=== PATIENT | female | born 1975 | race Caucasian/White ===

== ENCOUNTER 2022-11-08 09:28 | Outpatient (REF) | payer OTHER, SELFPAY ==
--- NOTE | ~2022-11-08 | MR_ITS ---
EXAMINATION: MR BRAIN WITH AND WITHOUT CONTRAST CLINICAL INFORMATION: Neurofibromatosis COMPARISON: CT head 11/12/2011. Please note prior brain MRI from 10/25/2011 is not available on PACS at time of dictation. TECHNIQUE: MRI of the brain was obtained using routine sequences before and following administration of intravenous contrast. A total of 5.5 mL of Gadavist was administered intravenously. FINDINGS: Symmetric slightly expansile T2 FLAIR hyperintensity within the bilateral mesial temporal lobes inclusive of the hippocampi. 4 mm nodule along the medial wall of the posterior body of the right lateral ventricle, presumed focal subependymal mckinney matter heterotopia. 3 mm rounded T2 hyperintensity in the right cerebellum. Lentiform T2 hyperintense homogeneously enhancing suboccipital mass partially eroding the outer table of the squamosal occipital calvarium possibly extending into the epidural space in the posterior fossa overlying the cerebellar convexities as seen on prior CT measuring 6.6 x 2.0 cm suggestive of a plexiform neurofibroma. There is infiltration extending into the overlying subcutaneous fat. Additional small resumed cutaneous neurofibromas along the posterior neck. No acute infarct. The GRE sequence is without susceptibility artifact to suggest acute or chronic blood products. No extra-axial fluid collection. The ventricles and sulci are normal in size and configuration without significant volume loss or hydrocephalus. Asymmetry of the lateral ventricles, larger on the right presumably congenital in etiology. Redemonstrated chronic lacunar infarct within the right caudate head. Again seen encephalomalacia/gliosis of the anteroinferior left frontal lobe inclusive of the left gyrus rectus. No abnormal intraparenchymal or leptomeningeal enhancement. No significant mass effect or herniation pattern. The intracranial dural venous sinus and arterial flow voids are preserved. Normal appearance of the midline structures. The orbits are grossly unremarkable. The paranasal sinuses and mastoids are well aerated. MR/MR head/brain wo/w con IMPRESSION: Please note prior brain MRI from 10/25/2011 is not available on PACS at time of dictation and comparison is made to CT from 11/12/2011; an addendum may be issued once prior imaging is made available. 1. 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 Rounded T2 FLAIR hyperintensity in the right cerebellum and expansile T2 signal changes within the mesial temporal lobes, likely on the spectrum of myelin vacuolization. Additional small presumed cutaneous neurofibromas along the posterior neck. 2. 4 mm presumed focal subependymal mckinney matter heterotopia along the right lateral ventricle can be correlated for seizure history. 3. Redemonstrated chronic lacunar infarct within the right caudate head. 4. Again seen encephalomalacia/gliosis of the anteroinferior left frontal lobe inclusive of the left gyrus rectus.
[2022-11-08] MEDS: gadobutroL 7.5 ML VIAL IVPUSH (11:17)
== END 2022-11-08 09:29 | disposition home or self-care (01) ==
LOC: HO.MRI 09:28
PROVIDERS: PCP Internal Medicine; Visit Provider Psychiatry & Neurology Neurology
DX: Q85.00 Neurofibromatosis, unspecified (principal)
CPT/HCPCS: 70553; A9585

== ENCOUNTER 2024-09-13 08:50 | Outpatient (AMB) | payer OTHER, SELFPAY ==
--- NOTE | 2024-09-13 08:54 | A.OFFVIS_ITS ---
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 She was taking amitriptyline 100mg at bedtime, no medication side effects. Headaches were still happening almost every day. Pain was usually bitemporal, sometimes throbbing-type pain. Some sonophobia. No photophobia, nausea, or vomiting. She noticed she was clenching her teeth at night and sometimes during the day. She was taking Tylenol and/or ibuprofen every day, 2-3x/day, saying it was the only thing that helps. Lipoma to left knee was bothersome when walking. [facility] Medical History (Updated 09/13/24 @ 08:59 by Maddi Pope CNP) Migraine Blindness left eye category 5, normal vision right eye Anxiety disorder Neurofibromatosis Review of Systems Const Denies chills, Denies daytime sleepiness, Denies difficulty sleeping, Denies fatigue, Denies fever(s), Denies frequent falls, Reports headache(s), Denies increased appetite, Denies poor appetite, Denies snoring, Denies weakness, Denies weight gain and Denies weight loss Eyes Denies loss of vision ENT Denies vertigo, Denies dizziness and Reports headache(s) Card Denies chest pain at rest, Denies chest pain with activity, Denies syncope, Denies leg edema and Denies palpitations Resp Denies snoring GI Denies constipation, Denies heartburn, Denies diarrhea and Denies nausea Denies urinary frequency, Denies urinary incontinence and Denies urinary urgency Musc Denies abnormal gait, Denies numbness and Denies tingling Skin/Breast Denies dry skin and Denies rash Neuro Denies abnormal gait, Denies vertigo, Denies dizziness, Denies syncope, Denies frequent falls, Reports headache(s), Denies lack of coordination, Denies loss of vision, Denies memory loss, Denies numbness, Denies restless legs, Denies seizure-like activity, Denies tingling, Denies paresthesias, Denies tremor(s) and Denies weakness Psych Denies anxiety, Denies depression, Denies auditory hallucinations, Denies memory loss, Denies visual hallucinations and Denies suicidal ideation Endo Denies fatigue and Denies palpitations Physical Exam Const Other: General Appearance:? normal, in no acute distress. Skin:? multiple cafe au lait spots and fibromas. Heart:? S1, S2 normal, no murmurs. Lungs:? clear anteriorly and posteriorly. Extremities:? no edema. Psych:? alert, oriented, cognitive function intact, cooperative with exam. Neuro Other: Mental Status:?Normal attention, orientation, memory and affect.? Cranial Nerves:?R pupil is round and reactive. L eye is blind. External occular muscles are intact. Visual ayala in R are full. Face is symmetrical. Facial sensations are normal. Tongue is midline. Palate elevates symmetrically. Shoulder shrugging is normal. Hearing to bedside conversation is normal. Motor Examination:?DTRs trace Sensory Exam:?....? Coordination:?No ataxia,?no titubation.? Gait Exam: Within normal limits. Cerebellar Signs:?Dtazsp-tz-hwke is okay. Extrapyramidal System:?No tremor, rigidity with normal facial expressions.? Pronator Drift:?Not present.? Involuntary Movements:?No tremors seen.? Speech:?Normal.? Assessment & Plan Assessment & Plan (1) Neurofibromatosis: Code(s): Q85.00 - Neurofibromatosis, unspecified Category: Medical Plan: She was advised to discuss referral to dermatology for lipoma with PCP. (2) Medication overuse headache: Code(s): G44.40 - Drug-induced headache, not elsewhere classified, not intractable Category: Medical Plan: She was educated on this concept and was advised to stop using all OTC analgesics completely. (3) Migraine: Code(s): G43.909 - Migraine, unspecified, not intractable, without status migrainosus Category: Medical Qualifiers: Intractability: not intractable Migraine type: unspecified Status migrainosus presence: without status migrainosus Qualified Code(s): G43.909 - Migraine, unspecified, not intractable, without status migrainosus Plan: Continue amitriptyline 50mg 2 tablets at bedtime. (4) Blindness left eye category 5, normal vision right eye: Code(s): H54.42A5 - Blindness left eye category 5, normal vision right eye Category: Medical (5) Anxiety disorder: Code(s): F41.9 - Anxiety disorder, unspecified Category: Medical Qualifiers: Anxiety disorder type: unspecified anxiety disorder Qualified Code(s): F41.9 - Anxiety disorder, unspecified (6) S/P craniotomy: Code(s): Z98.890 - Other specified postprocedural states Category: Surgical Plan Meds tried: Topiramate, amitriptyline Orders: Orders Erythrocyte Sedimentation Rate Today G43.909 - Migraine, unspecified, not intractable, without status migrainosus CRP High Sensitivity Today G43.909 - Migraine, unspecified, not intractable, without status migrainosus Coding Level of Care Code Est Pt Level 4 (61670) Diagnoses Neurofibromatosis Q85.00 Medication overuse headache G44.40 Migraine without status migrainosus, not intractable, unspecified migraine type G43.909 Intractability: not intractable Migraine type: unspecified Status migrainosus presence: without status migrainosus Blindness left eye category 5, normal vision right eye H54.42A5 Anxiety disorder, unspecified type F41.9 Anxiety disorder type: unspecified anxiety disorder S/P craniotomy Z98.890
--- OUTSIDE RECORDS SUMMARY | 2024-09-13 08:58 | XMS_ITS | Data Portability ---
Author Organization [facility], [address] Address [address] [place] [address] Assessment No assessment recorded. Plan of Treatment Reminders Order Date Submit Date Provider Last Modified By Organization Details Last Modified Time Details Appointments None recorded. Lab None recorded. Referral None recorded. Procedures None recorded. Surgeries None recorded. Imaging None recorded. Medication Orders Augmentin 875 mg-125 mg tablet 2022 023 [facility]armacy #[id number], [address] [place] [address], [id number], 3 14:14:02 Florastor 250 mg capsule 2022 023 [email or web address] [facility]/Pharmacy #[id number], [address] [place] [address], [id number], 3 14:19:09 chlorhexidi ne gluconate 0.12 % mouthwash 2022 023 [id number] [address] [place] [address], [id number], 3 14:20:21 Patient TargetsNo targets recorded. Patient Instructions Encounter Date Encounter Id Patient Instructions Last Modified By Organization Details Last Modified Time 01/22/2023 [id number] Based on your presentation and exam, you are being treated for a Dental Infection. I am going to prescribe you and antibiotic to cover this infection. Please be sure to complete the full course of this antibiotic to prevent antibiotic resistance. Follow up in 48 hours in person for recheck If symptoms gets worse, for example a fever, sinus pain, or drainage, please go to nearest ER The following are my other recommendations to help with symptoms and is important for this diagnosis: 1. Take Ibuprofen or Tylenol if you do not have any allergies to these medications. If you take a blood thinner you should not take NSAIDS like Ibuprofen. These medication will help with the inflammation in your respiratory tract which should help the cough. 2. Half Peroxide/Half Water Rinses 3. Make an appointment with a dentist - tooth infection will be helped with antibiotics but they usually just continue to reoccur. The only treatment is really a root canal or tooth extraction. 4. Oralgel can help alleviate some of the symptoms - this can be purchased OTC 5. Ice is ok to help with symptoms, but do not apply heat. I would be seen again if you develop any of the following symptoms. 1. Fever > 101.0 2. Stiff neck - where you can't turn your neck 3. Trouble swallowing your saliva - drooling 4. Swelling of a lymph node in your throat that is painful to touch 5. Difficulty breathing 6. Severe Headache 7. Significant facial swelling especially if it move up close to your eye. Thank you for using [employer] today, please feel free to contact our office if you have any questions or concerns. [email or web address] Not available 01/22/2023 14:15:15 Assessment: [place] al abscess with no evidence of sinus, periorbital or orbital involvement. Dental/cheek swelling unable to visualize via telehealth whether amenable to incision and drainage. No evidence of Davin's angina, necrotizing sinus infection, submandibular abscess. Plan: Trial of oral antibiotics, analgesia, and close follow-up within 24-48hrs in person for recheck. ER precautinos for worsening symptoms were given. Pt understood and agreed to plan. [email or web address] Not available 01/25/2023 18:15:37 Reason for Referral None Reported. Problems Name Problem SNOMED Code Status Onset Date Resolution Date Notes Provider Name and Address Organization Details Recorded Time Neurofibromatos is syndrome 85065372 Active [facility] 3 14:03:07 Problem Notes None recorded. Procedures Surgical History Date Name Laterality Status Provider Name and Address Organization Details Recorded Time 3 Virtual Visit completed [facility] D[facility] [place], [address], [place] [employer] [facility] 03/16/2023 15:08:44 Imaging Results None recorded. Procedure Notes None recorded. Medical Equipment None Reported. Allergies No known drug allergies Medications Name Sig Start Date Stop Date Status Note LastModified by Organization Details LastModified Time Augmentin 875 mg-125 mg tablet Take 1 tablet every 12 hours by oral route for 7 days. 2022 active Not Available Not Available Not Avai lable peg-electrol yte solution 420 gram oral solution DRINK 240 ML EVERY 15-20 MINUTES UNTIL FIRST HALF IS GONE, REPEAT 6 HOURS PRIOR TO PROCEDURE active Not Available Not Available No t Available amitriptylin e 25 mg tablet TAKE 1 TABLET BY MOUTH AT BEDTIME active Not Available Not Available No t Available medroxyproge sterone 150 mg/mL intramuscula r suspension ONE INTRAMUSCUL AR EVERY 3 MONTHS active Not Available Not Available No t Available Florastor 250 mg capsule Take 1 capsule twice a day by oral route for 14 days. 2022 active Not Available Not Available Not Avai lable chlorhexidin e gluconate 0.12 % mouthwash Place 15 mL twice a day by mucous membrane route as directed for 5 days. 2022 active Not Available Not Available Not Avai lable Vitals None Recorded Social History Question Answer Notes LastModified by SCL ion Details LastModified Time Tobacco Smoking Status Never Smoker Bellmicky duke, [place] - [facility] 01/22/2023 14:03:32 Have You Had A Flu Shot This Season? No Information not available 01/22/2023 Have You Had Direct Contact, Or Contact During Intimacy, With Monkeypox Rash, Scabs, Or Body Fluids From A Person With Monkeypox? No Information not available 01/22/2023 What Was The Date Of Your Most Recent Tobacco Screening? 01/22/2023 Information not available 01/22/2023 Have You Recently Traveled Abroad? No Information not available 01/22/2023 Sex: Unknown Functional Status Question Answer Note LastModified by Genomindizat ion Details LastModified Time Do you use any illicit or recreational drugs? No Information not available 01/22/2023 Do you or have you ever used any other forms of tobacco or nicotine? Yes Information not available 01/22/2023 What is your level of alcohol consumption? None Information not available 01/22/2023 Do you or have you ever used e-cigarettes or vape? Current user of electronic cigarettes Information not available 01/22/2023 Mental Status None recorded. Family History Nothing Reported. Medical History No medical history recorded. Gynecological History Statement/Question Response Is there any chance of ? No Obstetrics History GPAL:G 0 P 0 0 0 0 Immunizations Vaccine Type Date Status Note Provider Nam e and Address Organization Details Recorded Time Tdap 09/26/2011 completed Bell Kimberly null, [place] - [facility] 01/22/2023 14:04:40 Past Encounters Encounter ID Performer Location Encounter Start Date Encounter Closed Date Diagnosis/Indication Diagnosis SNOMED-CT Code Diagnosis ICD10 Code Diagnosis Note [id number] [facility] [address] [place] [address] 01/22/2023 13:21:24 01/22/2023 14:17:19 Dental abscess [id number] K04.7 Health Concerns Section Related Observation LastModified by Organization Detai ls LastModified Time None Recorded Concern Status LastModified by Organization Details LastModified Time None Recorded Advance Directives Directive None Recorded Payers Insurance Date Sequence Insurance Name Policy Number Policy Rasmussen Covered Member ID Rasmussen Member ID Guarantor Name 03/31/2023 1 [facility] [place] [id number] Yeimi Gonzalez [id number] Yeimi Gonzalez Notes Date Note Type Note Provider Name and Address Organization Details Recorded Time 01/22/2023 text/html Facial ProblemReported bypatient.Notes:47 y.o female pt via telehealth presents with left lower swelling that started this morning. Pt has h/o recent broken tooth of lower molar that occurred 2 days ago. PT has pain but denies any sinus swelling, fever, dysphagia or drainage. Pt unable to get into PCP or Dentist. [facility] [address], [place], [address], [place] - [facility] 03/16/2023 15:08:51 OBGyn Episode No OBEpisode recorded.
== END 2024-09-13 09:28 | disposition home or self-care (01) ==
LOC: HO.HSM 08:50
PROVIDERS: PCP Internal Medicine; Visit Provider Registered Nurse
DX: Q85.00 Neurofibromatosis, unspecified (principal); G44.40 Drug-induced headache, not elsewhere classified, not intractable; G43.909 Migraine, unspecified, not intractable, without status migrainosus; H54.42A5 Blindness left eye category 5, normal vision right eye; F41.9 Anxiety disorder, unspecified; Z98.890 Other specified postprocedural states
CPT/HCPCS: 99214

== ENCOUNTER 2024-09-13 08:50 | Outpatient (REF) | payer OTHER, SELFPAY ==
--- OUTSIDE RECORDS SUMMARY | 2024-09-13 10:11 | XMS_ITS | Clinical Summary ---
Author Organization [facility] Address [address] [place] [id number] Care Team Providers Care Sheet Writer Name Role Phone Tamiko Aguilar MD Primary Care Provider Unavai lable Allergies No known active allergies Medications Medication Sig Dispensed Refills Start Date End Date Status escitalopram (LEXAPRO) 10 MG tablet Take 1 Tab by mouth daily. 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 Dr Rashmi June H/O pheochromocytoma 06/28/2015 Overview: S/p surgical removal Presence of artificial left eye 06/28/19 16 Overview: Due to optic nerve glioma removal as a child History of glioma 06/28/2015 Overview: S/p removal as a child on left Neurofibromatosis 06/28/2015 Resolved Problems Problem Noted Date Resolved Date NO ACTIVE MEDICAL PROBLEMS 06/28/201506/27 Immunizations Name Administration Dates Next Due Tdap 09/26/2011 Family History Medical History Relation Name Comments NF 1 [Other] Daughter 2 Relation Name Status Comments Daughter 1 Daughter 2 Social History Tobacco Use Types Packs/Day Years Used Date Smoking Tobacco: Every Day Cigarettes 4 Comments:2 cigs a day Alcohol Use Standard Drinks/Week Comments No 0 (1 standard drink = 0.6 oz pur e alcohol) Sex Assigned at Date Recorded Not on file Last Filed Vital Signs Vital Sign Reading Time Taken Comments Blood Pressure 100/72 04/18/2016 8:46 AM EST Pulse 68 04/18/2016 8:46 AM EST Temperature 36.9 C (98.5 F) 04/18/2016 8:46 AM EST Respiratory Rate 12 04/18/2016 8:46 AM EST Oxygen Saturation - - Inhaled Oxygen Concentration - - Weight 56.2 kg (124 lb) 04/18/2016 8:46 AM EST Height 160 cm (5' 3 ) 04/18/2016 8:46 AM EST Body Mass Index 21.97 04/18/2016 8:46 AM EST Plan of Treatment Health Maintenance Due Date Last Done Comments Covid-19 Vaccine (#1) 02/12/1976 TOBACCO CHECK/ADVISE 08/12/1993 MAMMOGRAM 2015 BASELINE HEALTH EXAM 40-64 09/05/2017 09/06/2015, CERVICAL CANCER SCREENING 03/23/2018 03/23/2015 CHOLESTEROL SCREENING 09/05/2020 09/06/2015 DTAP/TDAP/TD (2 - Td or Tdap) 09/25/2021 09/26/2011 BMI CHECK/ADVISE 02/25/2024 INFLUENZA (#1) 2024 PNEUMOCOCCAL VACCINE FOR HIG H RISK PATIENTS (#1) 08/12/2040 Care Teams Sheet Writer Relationship Specialty Start Date End Date Tamiko Aguilar MD PCP - General Internal Medicine 03/22/15
== END 2024-09-13 08:51 | disposition home or self-care (01) ==
LOC: HO.LAB 08:50
PROVIDERS: PCP Internal Medicine; Visit Provider Registered Nurse
DX: G44.40 Drug-induced headache, not elsewhere classified, not intractable (principal); Q85.01 Neurofibromatosis, type 1; H54.42A5 Blindness left eye category 5, normal vision right eye; R51.9 Headache, unspecified; F41.9 Anxiety disorder, unspecified; Z98.890 Other specified postprocedural states; Z79.899 Other long term (current) drug therapy
CPT/HCPCS: 36415; 85652; 86141

== ENCOUNTER 2024-10-26 09:14 | Outpatient (AMB) | payer OTHER, SELFPAY ==
--- NOTE | 2024-10-26 09:31 | MHC.OFFVIS ---
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 She was doing okay. Headaches were better after she stopped taking Tylenol and ibuprofen multiple times a day. She fell about a month ago picking up heavy package and landed on knees, did not hit head. Knees were sore and she took some Tylenol and ibuprofen for this. She had some occasional body twitches, like a shiver, at night. Sleep was okay. [facility] Medical History (Updated 09/13/24 @ 08:59 by Maddi Pope CNP) Migraine Blindness left eye category 5, normal vision right eye Anxiety disorder Neurofibromatosis Review of Systems Const Denies chills, Denies daytime sleepiness, Denies difficulty sleeping, Denies fatigue, Denies fever(s), Denies frequent falls, Reports headache(s), Denies increased appetite, Denies poor appetite, Denies snoring, Denies weakness, Denies weight gain and Denies weight loss Eyes Denies loss of vision ENT Denies vertigo, Denies dizziness and Reports headache(s) Card Denies chest pain at rest, Denies chest pain with activity, Denies syncope, Denies leg edema and Denies palpitations Resp Denies snoring GI Denies constipation, Denies heartburn, Denies diarrhea and Denies nausea Denies urinary frequency, Denies urinary incontinence and Denies urinary urgency Musc Denies abnormal gait, Denies numbness and Denies tingling Skin/Breast Denies dry skin and Denies rash Neuro Denies abnormal gait, Denies vertigo, Denies dizziness, Denies syncope, Denies frequent falls, Reports headache(s), Denies lack of coordination, Denies loss of vision, Denies memory loss, Denies numbness, Denies restless legs, Denies seizure-like activity, Denies tingling, Denies paresthesias, Denies tremor(s) and Denies weakness Psych Denies anxiety, Denies depression, Denies auditory hallucinations, Denies memory loss, Denies visual hallucinations and Denies suicidal ideation Endo Denies fatigue and Denies palpitations Physical Exam Const Other: General Appearance:? normal, in no acute distress. Skin:? multiple cafe au lait spots and fibromas. Heart:? S1, S2 normal, no murmurs. Lungs:? clear anteriorly and posteriorly. Extremities:? no edema. Psych:? alert, oriented, cognitive function intact, cooperative with exam. Neuro Other: Mental Status:?Normal attention, orientation, memory and affect.? Cranial Nerves:?R pupil is round and reactive. L eye is blind. External occular muscles are intact. Visual ayala in R are full. Face is symmetrical. Facial sensations are normal. Tongue is midline. Palate elevates symmetrically. Shoulder shrugging is normal. Hearing to bedside conversation is normal. Motor Examination:?DTRs trace Sensory Exam:?....? Coordination:?No ataxia,?no titubation.? Gait Exam: Within normal limits. Cerebellar Signs:?Shkagg-wl-foia is okay. Extrapyramidal System:?No tremor, rigidity with normal facial expressions.? Pronator Drift:?Not present.? Involuntary Movements:?No tremors seen.? Speech:?Normal.? Results Reviewed Results Reviewed: Laboratory Tests 09/13/24 09:45 ESR 13 C-React Prot High Sens 0.4 Assessment & Plan Assessment & Plan (1) Neurofibromatosis: Code(s): Q85.00 - Neurofibromatosis, unspecified Category: Medical (2) Migraine: Code(s): G43.909 - Migraine, unspecified, not intractable, without status migrainosus Category: Medical Qualifiers: Intractability: not intractable Migraine type: unspecified Status migrainosus presence: without status migrainosus Qualified Code(s): G43.909 - Migraine, unspecified, not intractable, without status migrainosus Plan: Continue amitriptyline 100mg 1 tablet at bedtime. (3) Medication overuse headache: Code(s): G44.40 - Drug-induced headache, not elsewhere classified, not intractable Category: Medical Plan: Continue to avoid OTC analgesics. (4) Blindness left eye category 5, normal vision right eye: Code(s): H54.42A5 - Blindness left eye category 5, normal vision right eye Category: Medical (5) Anxiety disorder: Code(s): F41.9 - Anxiety disorder, unspecified Category: Medical Qualifiers: Anxiety disorder type: unspecified anxiety disorder Qualified Code(s): F41.9 - Anxiety disorder, unspecified (6) S/P craniotomy: Code(s): Z98.890 - Other specified postprocedural states Category: Surgical Plan Meds tried: Topiramate, amitriptyline Medications: New amitriptyline 100 mg PO BEDTIME 90 tabs 1RF 90 days Discontinued amitriptyline Discontinued Reason: Order 100 mg PO DAILY Coding Level of Care Code Est Pt Level 4 (32036) Diagnoses Neurofibromatosis Q85.00 Migraine without status migrainosus, not intractable, unspecified migraine type G43.909 Intractability: not intractable Migraine type: unspecified Status migrainosus presence: without status migrainosus Medication overuse headache G44.40 Blindness left eye category 5, normal vision right eye H54.42A5 Anxiety disorder, unspecified type F41.9 Anxiety disorder type: unspecified anxiety disorder S/P craniotomy Z98.890
--- OUTSIDE RECORDS SUMMARY | 2024-10-26 10:08 | XMS_ITS | Encounter Summary ---
Author Organization [facility] Address [facility] [address] [address] Phone Care Team Providers Care Fourchette Sewer Name Role Phone Lizet Iraheta MD Primary Care Provider Reason for Visit * Reason Comments Med Change Request Encounter Details Date Type Department Care Team (Late st Contact Info) Description 10/01/2024 Refill [facility] Urgent Care - [address] [address] Maame Louis, PLACEMENT SECRETARY [address] [place] [phone] [email or web address] Med Change Request Social History Tobacco Use Types Packs/Day Years Used Date Smoking Tobacco: Never Assessed Comments Unknown Sex and Gender Information Value Date Recorded Sex Assigned at Not on file Legal Sex Female 6:05 PM EST Gender Identity Not on file Sexual Orientation Not on file documented as of this encounter Plan of Treatment Not on file documented as of this encounter Visit Diagnoses Diagnosis Pain, dental documented in this encounter Care Teams Fourchette Sewer Relationship Specialty Start Date End Date Lizet Iraheta MD [address] [place] [address] [place] [phone] PCP - General 10/01/24 documented as of this encounter Additional Source Comments The information contained in this document represents components of the legal health record. It is not the complete legal health record.[facility]
--- OUTSIDE RECORDS SUMMARY | 2024-10-26 10:09 | XMS_ITS | Clinical Summary ---
Author Organization [facility] Address [address] [place] [phone] Phone Care Team Providers Care Civil Structural Designer Name Role Phone Lizet Iraheta MD Primary Care Provider Allergies No known active allergies Medications amitriptyline (ELAVIL) 50 MG tablet Take 2 tablets by mouth every morning. 5 Active sertraline (ZOLOFT) 100 MG tablet Take 100 mg by mouth every morning. Active diphenhydrAMINE -lidocaine-alum -mag-simethicon e (MAGIC MOUTHWASH-BLM) [id number] mg/30mL suspensionIndic ations:Pain, dental Swish and spit 10 mL 4 (four) times a day as needed (tooth pain). 237 mL 5 Active lidocaine 2 % SolnIndications :Pain, dental Use as directed 15 mL in the mouth or throat every 4 (four) hours as needed (tooth pain). 100 mL 5 Active ibuprofen (ADVIL,MOTRIN) 600 MG tabletIndicatio ns:Pain, dental Take 1 tablet (600 mg total) by mouth every 6 (six) hours as needed for pain (specific location in comments) (tooth pain). 20 tablet 5 Active amoxicillin (AMOXIL) 875 MG tabletIndicatio ns:Pain, dental Take 1 tablet (875 mg total) by mouth 2 (two) times a day for 5 days. 10 tablet 5 10/07/19 25 Encounters Date Type Department Care Team Description 10/01/2024 3:20 PM EDT Telemedicine [facility] [address] [place] [address] Maame Louis CNP Pain, dental (Primary Dx) 10/01/2024 Refill [facility] Urgent [facility] [place] [address] [facility] [place] [address] Maame Louis CNP Med Change Request from Last 3 Months Social History Tobacco Use Types Packs/Day Years Used Date Smoking Tobacco: Never Assessed Comments Unknown Sex and Gender Information Value Date Recorded Sex Assigned at Not on file Legal Sex Female 6:05 PM EST Gender Identity Not on file Sexual Orientation Not on file Plan of Treatment Not on file Medical Devices Not on file Insurance Classkick O [employer]kick [facility] Care Teams Civil Structural Designer Relationship Specialty Start Date End Date Lizet Iraheta MD [address] [place] [address] Dr Grubbs, [place] [phone] PCP - General 10/01/24 Additional Source Comments The information contained in this document represents components of the legal health record. It is not the complete legal health record.[facility]
== END 2024-10-26 09:53 | disposition home or self-care (01) ==
LOC: HO.HSM 09:15
PROVIDERS: PCP Internal Medicine; Visit Provider Registered Nurse
DX: Q85.00 Neurofibromatosis, unspecified (principal); G43.909 Migraine, unspecified, not intractable, without status migrainosus; G44.40 Drug-induced headache, not elsewhere classified, not intractable; H54.42A5 Blindness left eye category 5, normal vision right eye; F41.9 Anxiety disorder, unspecified; Z98.890 Other specified postprocedural states
CPT/HCPCS: 99214

== ENCOUNTER → 2024-10-26 09:14 | Outpatient (BNVA) | payer OTHER, SELFPAY | PROVIDERS: PCP Internal Medicine; Visit Provider Registered Nurse | DX: G44.40 Drug-induced headache, not elsewhere classified, not intractable (principal); G43.909 Migraine, unspecified, not intractable, without status migrainosus; Q85.00 Neurofibromatosis, unspecified; H54.42A5 Blindness left eye category 5, normal vision right eye; F41.9 Anxiety disorder, unspecified; Z98.890 Other specified postprocedural states; Z79.899 Other long term (current) drug therapy | CPT/HCPCS: 99212 ==